=== PATIENT | female | born 1940 | race Caucasian/White ===

== ENCOUNTER 2016-06-08 11:35 | Emergency (ER) | payer OTHER, BC ==
[2016-06-08 11:50] VITALS: BP 159/73; PULSE 86; TEMP 98.9; BMI 22.3
--- NOTE | 2016-06-08 12:23 | PDOC ---
History of Present Illness - General Chief Complaint: Eye Problem Stated Complaint: EYE PROBLEM Time Seen by Provider: 06/08/16 12:01 History Source: Patient Exam Limitations: No Limitations - History of Present Illness Initial Comments: 06/08/16 12:24 76-year-old female presents to the ED with complaints of right eyelid swelling and redness associated with itching since yesterday. 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 Patient states there was no involvement of the sinus cavity or nasal septal region. Patient states has had similar symptoms in the past requiring her to get antibiotics. Patient states is due to see her surgeon in the next few weeks for stent removal. Patient states no history of diabetes or immunosuppression. Patient also complaining of itching to the corner of the right eyelid. Patient denies drainage , visual changes, or retro-orbital discomfort. Patient also denies fever, headache, or dizziness. Timing/Duration: 24 hours Severity: mild Associated Symptoms: reports: denies symptoms Past History - Past Medical History Allergies/Adverse Reactions: Allergies Allergy/AdvReac Type Severity Reaction Status Date / Time Penicillins Allergy Rash Verified 06/08/16 11:45 DUST Allergy Uncoded 06/08/16 11:45 Home Medications: Ambulatory Orders Albuterol Sulfate [Proair Hfa -] 1 inh IN PRN PRN 07/05/13 Aspirin 81 mg PO DAILY 07/05/13 Levothyroxine [Synthroid -] 75 mcg PO DAILY 07/05/13 Losartan/Hydrochlorothiazide [Losartan-Hctz 100-25 mg Tab] 1 tab PO DAILY Salmeterol/Fluticasone [Advair 100Mcg/50Mcg -] 1 inh IN PRN 07/05/13 Hydrocortisone 0.5% Ointment [Hytone 0.5% Ointment -] 1 applic TP BID PRN #1 tube 06/08/16 Sulfamethoxazole/Trimethoprim [Bactrim Ds -] 1 tab PO BID #14 tablet 06/08/16 Anemia: No Asthma: Yes Cancer: Yes (GROWTH 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 THYROID, RT EYE TEAR DUCT CARCINOMA) Cardiac Disorders: No CVA: No COPD: No CHF: No Dementia: No Diabetes: No GI Disorders: Yes (GERD) Disorders: No HTN: Yes Hypercholesterolemia: Yes (BORDERLINE) Liver Disease: No Seizures: No Thyroid Disease: Yes - Surgical History Abdominal Surgery: Yes Appendectomy: No Cardiac Surgery: No Cholecystectomy: No Lung Surgery: No Neurologic Surgery: No Orthopedic Surgery: Yes - Psycho/Social/Smoking Cessation Hx Suicidal Ideation: No Smoking History: Never smoked Have you smoked in the past 12 months: No Hx Alcohol Use: Yes (SOCIAL) Drug/Substance Use Hx: No Substance Use Type: None Hx Substance Use Treatment: No Patient Lives Alone: No Lives with/in: spouse/SO Review of Systems - Review of Systems Able to Perform ROS?: Yes Constitutional: No: Symptoms Reported HEENTM: Yes: Tearing. No: Eye Pain, Blurred Vision Respiratory: No: Symptoms reported Integumentary: Yes: Erythema, Pruritus Neurological: No: Symptoms reported Hematologic/Lymphatic: No: Symptoms Reported *Physical Exam - Vital Signs Last Vital Signs Temp Pulse Resp BP Pulse Ox 98.9 F 86 19 159/73 97 06/08/16 11:46 06/08/16 11:46 06/08/16 11:46 06/08/16 11:46 06/08/16 11:46 - Physical Exam General Appearance: Yes: Nourished, Appropriately Dressed. No: Apparent Distress Integumentary: positive: Erythema (with mild edema to the right lower eyelid. no involvement of upper eyelid. sclera white. No drainage. Noted pinhead sized opening to the lacrimal duct without drainage or inflammation) Neurologic: positive: Motor Strength 5/5 (ambulatory) Medical Decision Making - Medical Decision Making 06/08/16 12:31 Patient here for redness, itching and swelling to the right lower eyelid that she noted yesterday. Patient on exam appears to have cellulitis of the lower eyelid. Patient also noted to be itching the outer aspect of her eye which she states has taken Benadryl with adverse effects. Patient be given topical hydrocortisone to use in and around the eye but not in the eye. Patient also be given Bactrim for discharge. Patient to follow-up with her PCP and eye surgeon this week. *DC/Admit/Observation/Transfer Diagnosis at time of Disposition: Cellulitis of right lower eyelid - Discharge Dispostion Disposition: HOME Condition at time of disposition: Good - Prescriptions Prescriptions: Sulfamethoxazole/Trimethoprim [Bactrim Ds -] 1 tab PO BID #14 tablet Hydrocortisone 0.5% Ointment [Hytone 0.5% Ointment -] 1 applic TP BID PRN #1 tube PRN Reason: For Itching - Referrals Referrals: Abel Souza MD [Primary Care Provider] - - Patient Instructions Printed Discharge Instructions: DI for Orbital Cellulitis Additional Instructions: Please keep your hands and eyeglasses clean. Change pillow case and hand towel daily. Take Antibiotics until completetd. Use topical hydrocortisone twice a day as needed to affected area. Follow up with your DrNely on Thursday.
== END 2016-06-08 12:24 | disposition home or self-care (01) ==
LOC: JERFT 11:35
DX: H00.032 Abscess of right lower eyelid (principal); I10 Essential (primary) hypertension; E78.00 Pure hypercholesterolemia, unspecified; E03.9 Hypothyroidism, unspecified; K21.9 Gastro-esophageal reflux disease without esophagitis
CPT/HCPCS: 99281-25

== ENCOUNTER 2017-06-19 08:44 | Day surgery (SDC) | payer OTHER, BC ==
[2017-06-18 14:03] VITALS: BMI 24.0
[2017-06-19] MEDS ORDERED: LIDOCAINE HCL/PF 2% SDV 5ML VIAL ONE (09:57)
[2017-06-19] MEDS ORDERED: PROPOFOL 20 ML ONE ×5 (09:57)
[2017-06-19 11:35] VITALS: TEMP 97.8
[2017-06-19 12:00] VITALS: BP 122/63; PULSE 67
--- NOTE | 2017-06-22 11:52 | PATH ---
Surgical Pathology Report Patient Name: MATTHEW ARMANDO [facility]. Rec. #: [id number] /Age/Gender: 1940 (Age: 77) / F Account: [id number] Location: U-ENDOSCOPY Taken: 06/19/2017 Received: 06/19/2017 Reported: 06/22/2017 Physicians: Triston Tinoco M.D. Specimen(s) Received A: BX SECOND PORTION DUODENUM B: BX ANTRUM C: BX GE JUNCTION D: BX DISTAL ESOPHAGUS E: BX LIPOMA OF ILEOCECAL VALVE Clinical History Stomach and colon cancer screening Postoperative findings: Hiatal hernia, Schatzi's Ring, distal esophageal papilloma, diverticulosis, lipoma of ileocecal valve Final Diagnosis A. DUODENUM, SECOND PORTION AND BULB, BIOPSY: DUODENAL MUCOSA WITH NO PATHOLOGIC CHANGES. NO HISTOLOGIC EVIDENCE OF GLUTEN SENSITIVE ENTEROPATHY (CELIAC SPRUE) IDENTIFIED. B. STOMACH, ANTRUM, BIOPSY: MILD CHRONIC GASTRITIS. IMMUNOSTAIN FOR H. PYLORI IS NEGATIVE. C. GE JUNCTION, BIOPSY: SQUAMOUS AND GASTRIC MUCOSA WITH CHRONIC INFLAMMATION, PAPILLOMATOSIS, AND SCATTERED INTRAEPITHELIAL EOSINOPHILS CONSISTENT WITH REFLUX ESOPHAGITIS. NO INTESTINAL METAPLASIA IDENTIFIED (NO GUSTAFSON'S IDENTIFIED). D. DISTAL ESOPHAGUS, BIOPSY: SQUAMOUS EPITHELIUM WITH PAPILLOMATOSIS. NO DYSPLASIA OR CARCINOMA IDENTIFIED. E. COLON, ILEOCECAL VALVE, BIOPSY: SMALL INTESTINAL MUCOSA WITH NO PATHOLOGIC CHANGES. EXTREMELY SCANT SUBMUCOSAL TISSUE PRESENT. Comment: Recommend correlation with clinical findings and follow up as clinically indicated. Electronically Signed Julio Cesar Graham M.D. Gross Description A. Received in formalin, labeled "BX second portion of duodenum the duodenal bulb" are 3 laughlin, irregular portions of soft tissue measuring 0.2-0.3 cm. in greatest dimension. The specimens are submitted in toto in one cassette. B. Received in formalin, labeled "antrum" are 4 laughlin, irregular portions of soft tissue ranging in size from 0.1-0.4 cm. in greatest dimension. The specimens are submitted in toto in one cassette. C. Received in formalin, labeled "GE junction" are multiple laughlin, irregular portions of soft tissue ranging in size from 0.1-0.2 centimeters and measuring 0.5 x 0.5 cm. in aggregate. The specimens are submitted in toto in one cassette. D. Received in formalin, labeled "distal esophagus papilloma" are 3 laughlin, irregular portions of soft tissue measuring 0.1, 0.2, and 0.4 cm. in greatest dimension. The specimens are submitted in toto in one cassette. E. Received in formalin, labeled "lipoma of ileocecal valve" are 2 laughlin, irregular portions of soft tissue measuring 0.2 cm. in greatest dimension. The specimens are submitted in toto in one cassette. AVE/06/19/2017 dez06/19/2017
== END 2017-06-19 12:19 | disposition home or self-care (01) ==
LOC: JASU-ENDO 08:44
PROVIDERS: ATTEND Internal Medicine Gastroenterology
PROC: 0DB68ZX Excision of Stomach, Via Natural or Artificial Opening Endoscopic, Diagnostic (ICD-10-PCS; 2017-06-19)
PROC: 0DB38ZX Excision of Lower Esophagus, Via Natural or Artificial Opening Endoscopic, Diagnostic (ICD-10-PCS; 2017-06-19)
PROC: 0DB48ZX Excision of Esophagogastric Junction, Via Natural or Artificial Opening Endoscopic, Diagnostic (ICD-10-PCS; 2017-06-19)
PROC: 0DBL8ZX Excision of Transverse Colon, Via Natural or Artificial Opening Endoscopic, Diagnostic (ICD-10-PCS; 2017-06-19)
PROC: 0DB98ZX Excision of Duodenum, Via Natural or Artificial Opening Endoscopic, Diagnostic (ICD-10-PCS; principal; 2017-06-19 09:45)
DX: Z12.11 Encounter for screening for malignant neoplasm of colon (principal); K57.30 Diverticulosis of large intestine without perforation or abscess without bleeding; K64.8 Other hemorrhoids; D17.5 Benign lipomatous neoplasm of intra-abdominal organs; K22.2 Esophageal obstruction; K44.9 Diaphragmatic hernia without obstruction or gangrene; K31.819 Angiodysplasia of stomach and duodenum without bleeding; D13.0 Benign neoplasm of esophagus; I10 Essential (primary) hypertension
CPT/HCPCS: 88305-TC; 88342-TC

== ENCOUNTER 2020-10-08 04:44 | Day surgery (SDC) | payer OTHER, BC ==
[2020-10-04 17:10] VITALS: BMI 29.2
[2020-10-08 09:05] VITALS: TEMP 97.8
[2020-10-08 12:09] VITALS: BP 123/57; PULSE 57
== END 2020-10-08 09:47 | disposition home or self-care (01) ==
LOC: JASU-ENDO 04:44
PROVIDERS: ATTEND Internal Medicine Gastroenterology
PROC: 0DB98ZX Excision of Duodenum, Via Natural or Artificial Opening Endoscopic, Diagnostic (ICD-10-PCS; 2020-10-08)
PROC: 0DB78ZX Excision of Stomach, Pylorus, Via Natural or Artificial Opening Endoscopic, Diagnostic (ICD-10-PCS; 2020-10-08)
PROC: 0DB48ZX Excision of Esophagogastric Junction, Via Natural or Artificial Opening Endoscopic, Diagnostic (ICD-10-PCS; 2020-10-08)
PROC: 0DJD8ZZ Inspection of Lower Intestinal Tract, Via Natural or Artificial Opening Endoscopic (ICD-10-PCS; 2020-10-08)
PROC: 0DJD8ZZ Inspection of Lower Intestinal Tract, Via Natural or Artificial Opening Endoscopic (ICD-10-PCS; principal; 2020-10-08 08:15)
DX: Z12.11 Encounter for screening for malignant neoplasm of colon (principal); K22.2 Esophageal obstruction; K21.00 Gastro-esophageal reflux disease with esophagitis, without bleeding; K44.9 Diaphragmatic hernia without obstruction or gangrene; K29.00 Acute gastritis without bleeding; K29.60 Other gastritis without bleeding; K63.89 Other specified diseases of intestine; K57.30 Diverticulosis of large intestine without perforation or abscess without bleeding; K56.609 Unspecified intestinal obstruction, unspecified as to partial versus complete obstruction; K59.00 Constipation, unspecified; R19.5 Other fecal abnormalities
CPT/HCPCS: 43239; G0121; 88305-TC; 88342-TC